=== PATIENT | female | born 1960 | race Caucasian/White ===

== ENCOUNTER 2018-10-18 22:38 | Emergency (ER) | payer BC ==
[2018-10-18 23:22] VITALS: BP 144/90; PULSE 86; O2SAT 95
[2018-10-18] MEDS ORDERED: Xylocaine-Mpf 2% 5 Ml Vial IJ ONE (23:48)
[2018-10-18] MEDS ORDERED: Adacel Vial IM ONE (23:48)
--- NOTE | 2018-10-19 00:16 | ERPHSYRPT ---
- History of Present Illness Time Seen by Provider: 10/18/18 23:20 Source: patient Exam Limitations: clinical condition Patient Subjective Stated Complaint: Laceration Triage Nursing Assessment: Patient ambulated back to ED and transferred self to bed. Patient A+O X3. Patient here for small laceration to left hand 2nd digit after tripping while carrying an object causing her finger to scrape on concrete. Patient states this happened at noon and she has not been able to stop the bleeding. Small laceration noted to left finger 2nd digit with some bruising around tip of finger. Patient denies pain or discomfort. Physician History: PATIENT STATES WHILE CARRYING GLASS DISH TRIPPED AND FELL SUSTAINED LACERATION OVER LEFT INDEX FINGER ASSOCIATED WITH BRUISING. DENIES DEFORMITY. Occurred: just prior to arrival Quality: constant, throbbing Severity of Pain-Max: mild Severity of Pain-Current: mild Extremities Pain Location: 2nd finger: left Modifying Factors: Improves With: movement Associated Symptoms: none Allergies/Adverse Reactions: No Known Drug Allergies Allergy (Unverified 10/18/18 23:05) Home Medications: Venlafaxine HCl ER 75 mg [Effexor XR 75 MG] 1 cap PO DAILY 10/18/18 [ History] Hx Influenza Vaccination/Date Given: No Hx Pneumococcal Vaccination/Date Given: No Immunizations Up to Date: Yes - Review of Systems Constitutional: No Symptoms Musculoskeletal: Injury, Joint Pain, Joint Swelling Psychological: No Symptoms Endocrine: No Symptoms - Past Medical History Pertinent Past Medical History: No Neurological History: No Pertinent History ENT History: No Pertinent History Cardiac History: Aneurysm Respiratory History: No Pertinent History Endocrine Medical History: No Pertinent History Musculoskeletal History: No Pertinent History GI Medical History: No Pertinent History History: No Pertinent History Psycho-Social History: No Pertinent History Female Reproductive Disorders: No Pertinent History - Past Surgical History Past Surgical History: Yes Neuro Surgical History: No Pertinent History Cardiac: No Pertinent History Respiratory: No Pertinent History Gastrointestinal: No Pertinent History Genitourinary: No Pertinent History Musculoskeletal: No Pertinent History Female Surgical History: Section Other Surgical History: X 3 - Social History Smoking Status: Never smoker Exposure to second hand smoke: No Drug Use: none Patient Lives Alone: No - Female History Hx Last Menstrual Period: Ablation Hx Now: No - Nursing Vital Signs Nursing Vital Signs: Initial Vital Signs Temperature 99.1 F 10/18/18 23:07 Pulse Rate 86 10/18/18 23:07 Respiratory Rate 18 10/18/18 23:07 Blood Pressure 144/90 10/18/18 23:07 O2 Sat by Pulse Oximetry 95 10/18/18 23:07 Pain Scale Pain Intensity 0 - Physical Exam General Appearance: no apparent distress Hand Exam: laceration (THERE IS A 2MM Z 2.5CM AVULSION LACERATION OVER MIDDLE PHALANGX LEFT INDEX FINGER ULNAR ASPECT, FROM, MCP,PIP, DIP JOINT, ECCHYMOSIS VOLAR ASPECT DIP JOINT, NO EVIDENCE OF FOREIGN BODY) DTR - Upper Extremity Exam: bicep (R): 2+, bicep (L): 2+, tricep (R): 2+, tricep (L): 2+ Neuro/Tendon Exam: normal sensation, normal motor functions Mental Status Exam: alert, oriented x 3 Skin Exam: normal color SpO2: 95 Procedures - Laceration/Wound Repair Left Wound Location: Left (INDEX FINGER) Wound Length (cm): 2.5 Wound's Depth, Shape: linear Wound Explored: clean Irrigated: Yes Hibiclens Prep: Yes Anesthesia: digital block, 2% Lidocaine Volume Anesthetic (ccs): 4 Wound Repaired With: sutures Suture Size/Type: 4-0 Number of Sutures: 4 Layer Closure?: No Sterile Dressing Applied?: Yes Splint Applied?: No Ordered Tests: Active Orders 24 hr Category Date Time Status HAND (MINIMUM 3 VIEWS) Stat Exams 10/19/18 00:08 Ordered Medication Summary Discontinued Medications Generic Name Dose Route Start Last Admin Trade Name Freq PRN Reason Stop Dose Admin Diphtheria/Tetanus/Acell Pertussis 0.5 ml 10/18/18 23:48 Adacel Vial IM 10/18/18 23:49 .ONCE ONE Lidocaine HCl 4 ml 10/18/18 23:48 Xylocaine-Mpf 2% 5 Ml Vial IJ 10/18/18 23:49 STAT ONE - Progress Progress Note: 10/19/18 00:16 ADACEL 0.5ML IM Counseled pt/family regarding: diagnosis, need for follow-up, rad results - Departure Departure Disposition: Home, Extended Care Facility Clinical Impression: LACERATION/CONTUSION LEFT INDEX FINGER Condition: Stable Critical Care Time: No Referrals: DOCTOR,NO FAMILY [Primary Care Provider] - Additional Instructions: REMOVE DRESSING AFTER 8 HOURS, CLEANSE WITH SOAP AND WATER AND APPLY LOOSE BANDAID OVER WOUND DURING THE DAY AND LEAVE WOUND OPEN AT NIGHT. ANTIBIOTIC AUGMENTIN 875MG TWICE DAILY FOR 7 DAYS. HAVE STITCHES REMOVED AT 10 DAYS, WATCH FOR SIGNS OF INFECTION, REDNESS, SWELLING OR DRAINAGE. NORCO 5/325 EVERY 6 HOURS DISPENSE 6 TABLETS. Prescriptions: Hydrocodone/APAP 5-325 Tab^^^ [Pierce 5-325 Tablet^^^] 1 tab PO Q6HPRN PRN #6 tablet MDD 4 PRN Reason: Pain Amox Tr/Potass Clav. 875 mg [Augmentin 875-125 Tablet] 875 mg PO BID #14 tablet
[2018-10-19] MEDS ORDERED: XYLOCAINE 2% HCL 20 ML MDV ONE (00:31)
[2018-10-19] MEDS ORDERED: Adacel Vial IM ONE (00:31)
[2018-10-19] MEDS ORDERED: NORCO 5/325 MG PO ONE (00:32)
[2018-10-19] MEDS ORDERED: NORCO 5/325 MG ONE (00:38)
--- NOTE | 2018-10-19 09:03 | XRAY ---
Indication: Laceration distal 2nd phalanx. Comparison: None 3 views of the left hand demonstrates distal 2nd phalanx laceration and mild radiocarpal degenerative changes. No other bony, articular, or soft tissue abnormalities.
== END 2018-10-19 00:50 | disposition home or self-care (01) ==
LOC: ED 22:38
DX: S61.211A Laceration without foreign body of left index finger without damage to nail, initial encounter (principal); S60.022A Contusion of left index finger without damage to nail, initial encounter; W01.198A Fall on same level from slipping, tripping and stumbling with subsequent striking against other object, initial encounter
CPT/HCPCS: 12001; 73130; 90471; 90715; 96372; 99284; A9270-GY